=== PATIENT | female | born 1950 | race Caucasian/White ===

== ENCOUNTER 2016-09-15 19:52 | Emergency (ER) | payer OTHER, MEDICARE, MEDICAID ==
[~2016-09-15] VITALS: Ht 157.5 cm; Wt 105.5 kg
[2016-09-15] MEDS ORDERED: LEVOTHYROXIN50 MCG PO (21:55)
[2016-09-15] MEDS ORDERED: LASIX 20 MG TAB20 MG PO (21:56)
[2016-09-15] MEDS ORDERED: LISINOPRIL20 M1 PO (21:56)
[2016-09-15] MEDS ORDERED: LOPRESSOR50 M1 PO (21:58)
[2016-09-15] MEDS ORDERED: EFFEXOR XR150 MG PO (21:58)
[2016-09-15] MEDS ORDERED: TRAZODONE50 MG PO (21:59)
[2016-09-15] MEDS ORDERED: OMEPRAZOLE DR PO (22:01)
[2016-09-15] MEDS ORDERED: ATORVASTATIN CA20 MG PO (22:02)
[2016-09-15] MEDS ORDERED: TOUJEO SOL300 UNIT/M SC (22:03)
[2016-09-15] MEDS ORDERED: MELATONIN3 MG PO (22:03)
[2016-09-15 22:34] LABS: HEMATOCRIT 42.9 % (37.0-47.0); HEMOGLOBIN 13.8 g/dl (12.0-16.0); IMMATURE GRANULOCYTES 0.3 % (0.0-1.0); MEAN CORPUSCULAR HGB 27.3 pG CALC (26.0-32.0); MEAN CORPUSCULAR HGB CONC 32.2 g/L CALC (32.0-36.0); NEUT# 5.14 thou/uL (2.00-7.15); RED BLOOD COUNT 5.05 mill/uL (4.20-5.60); RED CELL DISTRI WIDTH 14.3 % (11.5-15.5)
[2016-09-15 22:35] LABS: URINE BILIRUBIN - DIPSTICK NEGATIVE (NEGATIVE); URINE BLOOD DIPSTICK NEGATIVE (NEGATIVE); URINE CLARITY CLEAR; URINE COLOR YELLOW; URINE GLUCOSE - DIPSTICK NEGATIVE (NEGATIVE); URINE KETONE NEGATIVE (NEGATIVE); URINE LEUK ESTERASE NEGATIVE (Negative); URINE NITRITE - DIPSTICK NEGATIVE (Negative); URINE PH 5.5 (4.5-8.0); URINE PROTEIN - DIPSTICK NEGATIVE (NEG-TRACE); URINE SPECIFIC GRAVITY <=1.005; URINE UROBILINOGEN - DIPSTICK 0.2 E.U./dL (0.2)
[2016-09-15 22:52] LABS: ALBUMIN 4.7 g/dL (3.2-5.0); BILIRUBIN, TOTAL 0.3 mg/dL (0.0-1.4); CALCIUM 9.7 mg/dL (8.4-10.2); CREATININE 1.3 mg/dL (0.5-1.0); POTASSIUM 3.7 mmol/l (3.5-5.1); TOTAL PROTEIN 8.3 g/dL (6.3-8.2)
[2016-09-16 00:01] VITALS: BP 162/80
== END 2016-09-16 00:01 | DRG 552 ==
LOC: ED 19:52
PROVIDERS: Emergency Medicine
DX: S16.1XXA Strain of muscle, fascia and tendon at neck level, initial encounter (principal); S06.300A Unspecified focal traumatic brain injury without loss of consciousness, initial encounter; V49.59XA Passenger injured in collision with other motor vehicles in traffic accident, initial encounter; Y92.414 Local residential or business street as the place of occurrence of the external cause

== ENCOUNTER 2019-07-21 | Emergency (ER) | payer MEDICARE ==
[~2019-07-21] MED LIST: AMLODIPINE5 MG PO; ASPIRIN 81 LOW81 MG PO; ATORVASTATIN CA20 MG PO; EFFEXOR XR150 MG PO; GNP MELATONIN MA5 MG PO; LASIX 20 MG TAB20 MG PO; LEVOTHYROXIN25 MC1 PO; LEVOTHYROXIN50 MCG PO; LIPITOR80 M1 PO; LISINOPRIL20 M1 PO; LOPRESSOR50 M1 PO; LOSARTAN POT100 MG PO; MELATONIN PO; MELATONIN3 M1 PO; MELATONIN3 MG PO; OMEPRAZOLE PO; TOUJEO SOL300 UNIT/M SC; TRAZODONE50 MG PO
[2019-07-21] MEDS ORDERED: PERCOCET 5/321 COMBO PO (05:38)
== END 2019-07-21 06:15 | disposition home or self-care (01) ==
DX: S42.302A Unspecified fracture of shaft of humerus, left arm, initial encounter for closed fracture (principal); I10 Essential (primary) hypertension; W18.39XA Other fall on same level, initial encounter; Y92.009 Unspecified place in unspecified non-institutional (private) residence as the place of occurrence of the external cause

== ENCOUNTER 2023-02-16 14:46 | Inpatient (IN) | payer OTHER ==
[2023-02-16] VITALS (12 sets, daily range): BP systolic 144–174; BP diastolic 86–130
[~2023-02-16] VITALS: Ht 157.5 cm; Wt 86.6 kg
[~2023-02-16 14:46] MED LIST changes: +PERCOCET 5/321 COMBO PO
[2023-02-16 15:29] LABS: BASO% 0.4 % (0-3); EOS% 0.1 % (0-8); HEMATOCRIT 35.2 % (37.0-47.0); HEMOGLOBIN 10.7 g/dl (12.0-16.0); IMMATURE GRANULOCYTES 0.3 % (0.0-5.0); LYMPH% 18.9 % (15-41); MEAN CELL VOLUME 87.1 fL CALC (80.0-100.0); MEAN CORPUSCULAR HGB 26.5 pG CALC (26.0-32.0); MEAN CORPUSCULAR HGB CONC 30.4 g/dL CAL (32.0-36.0); MONO% 9.5 % (2-13); NEUT# 6.49 thou/uL (2.00-7.15); NEUT% 70.8 % (42-76); RED BLOOD COUNT 4.04 mill/uL (4.20-5.60)
[2023-02-16 15:47] LABS: ALBUMIN 3.9 g/dL (3.2-5.0); ALKALINE PHOSPHATASE 137 u/l (38-126); ANION GAP 18 (6-22 (CALC)); BILIRUBIN, TOTAL 1.2 mg/dL (0.02-1.3); BUN 25 mg/dL (8-23); BUN/CREATININE RATIO 24 (12-20 (CALC)); CARBON DIOXIDE 19 mmol/l (22-30); CHLORIDE 103 mmol/l (95-108); GFR FOR AFR.AMER. > 60 ML/MIN (>=60 (CALC)); GFR OTHER RACES 54 ML/MIN (>=60 (CALC)); POTASSIUM 4.6 mmol/l (3.5-5.1); SODIUM 135 mmol/l (137-146); TOTAL PROTEIN 6.8 g/dL (6.3-8.2)
[2023-02-16 15:52] LABS: INTERNATIONAL NORMALIZED RATIO 1.9 RATIO (0.7-1.3); PROTHROMBIN TIME 17.5 SECONDS (9.0-12.5)
[2023-02-16 15:56] LABS: D-DIMER 7.2 mg/L (0.19-0.60)
[2023-02-16 15:58] LABS: SGOT/AST 1238 u/l (9-36)
[2023-02-16] MEDS ORDERED: OXYBUTYNIN CHLOR5 M2 (19:56)
[2023-02-16] MEDS ORDERED: LISINOPRIL10 MG PO (19:56)
[2023-02-16 19:57] LABS: URINE BILIRUBIN - DIPSTICK Negative (NEGATIVE); URINE BLOOD DIPSTICK Small (NEGATIVE); URINE GLUCOSE - DIPSTICK Negative (NEGATIVE); URINE KETONE Negative (NEGATIVE); URINE LEUK ESTERASE Negative (NEGATIVE); URINE NITRITE - DIPSTICK Negative (Negative); URINE PH 5.5 (4.5-8.0); URINE PROTEIN - DIPSTICK 100 mg/dL (NEG-TRACE); URINE SPECIFIC GRAVITY 1.025; URINE UROBILINOGEN - DIPSTICK 0.2 E.U./dL (0.2)
[2023-02-16] MEDS ORDERED: MOTRIN400 MG/TAB PO (19:57)
[2023-02-16] MEDS ORDERED: ALBUTERO2 XX (20:00)
[2023-02-16] MEDS ORDERED: MILK OF MAGNES7.75 % (20:00)
[2023-02-16 20:02] LABS: URINE COLOR Yellow
[2023-02-16 20:09] LABS: URINE SQUAMOUS EPITHELIAL CELL FEW EPI/hpf (0-FEW)
[2023-02-17 00:13] VITALS: BP 157/95
[2023-02-17 04:37] VITALS: BP 178/94
[2023-02-17 06:19] VITALS: BP 143/74
[2023-02-17 06:41] LABS: BASO% 0.6 % (0-3); EOS% 0.1 % (0-8); HEMATOCRIT 33.7 % (37.0-47.0); HEMOGLOBIN 10.5 g/dl (12.0-16.0); IMMATURE GRANULOCYTES 0.1 % (0.0-5.0); LYMPH% 21.3 % (15-41); MEAN CELL VOLUME 86.2 fL CALC (80.0-100.0); MEAN CORPUSCULAR HGB 26.9 pG CALC (26.0-32.0); MEAN CORPUSCULAR HGB CONC 31.2 g/dL CAL (32.0-36.0); MONO% 11.1 % (2-13); NEUT# 5.72 thou/uL (2.00-7.15); NEUT% 66.8 % (42-76); RED BLOOD COUNT 3.91 mill/uL (4.20-5.60); RED CELL DISTRI WIDTH 15.1 % (11.5-15.5)
[2023-02-17 06:59] LABS: ALBUMIN 3.6 g/dL (3.2-5.0); ALKALINE PHOSPHATASE 144 u/l (38-126); ANION GAP 16 (6-22 (CALC)); BILIRUBIN, TOTAL 1.7 mg/dL (0.02-1.3); BUN 24 mg/dL (8-23); BUN/CREATININE RATIO 24 (12-20 (CALC)); CALCULATED LDLCHOLESTEROL 46 mg/dL (62-129 (CALC)); CARBON DIOXIDE 20 mmol/l (22-30); CHLORIDE 104 mmol/l (95-108); CHOLESTEROL HDL RATIO 3.3 (<4.4 (CALC)); GFR FOR AFR.AMER. > 60 ML/MIN (>=60 (CALC)); GFR OTHER RACES 54 ML/MIN (>=60 (CALC)); HDL CHOLESTEROL 29 mg/dL (39.0-59.0); POTASSIUM 4.5 mmol/l (3.5-5.1); SODIUM 135 mmol/l (137-146); TOTAL PROTEIN 6.3 g/dL (6.3-8.2); TOTAL TRIGLYCERIDES 103 mg/dl (0-149); VLDL CHOLESTROL 21 mg/dl (0-48 (CALC))
[2023-02-17 07:01] LABS: TOTAL CHOLESTEROL 96 mg/dl (0-199)
[2023-02-17 07:06] LABS: SGOT/AST 1178 u/l (9-36)
[2023-02-17 12:46] VITALS: BP 142/78
[2023-02-17 14:12] VITALS: BP 156/103
[2023-02-17 20:42] VITALS: BP 150/77
[2023-02-18] VITALS (7 sets, daily range): BP systolic 143–164; BP diastolic 78–100
[2023-02-18 07:37] LABS: BASO% 0.6 % (0-3); EOS% 1.2 % (0-8); HEMATOCRIT 35.2 % (37.0-47.0); HEMOGLOBIN 11.1 g/dl (12.0-16.0); IMMATURE GRANULOCYTES 0.1 % (0.0-5.0); MEAN CELL VOLUME 84.8 fL CALC (80.0-100.0); MEAN CORPUSCULAR HGB 26.7 pG CALC (26.0-32.0); MEAN CORPUSCULAR HGB CONC 31.5 g/dL CAL (32.0-36.0); MONO% 6.8 % (2-13); NEUT# 6.21 thou/uL (2.00-7.15); NEUT% 64.3 % (42-76); RED BLOOD COUNT 4.15 mill/uL (4.20-5.60)
[2023-02-18 08:04] LABS: INTERNATIONAL NORMALIZED RATIO 1.9 RATIO (0.7-1.3); PROTHROMBIN TIME 17.4 SECONDS (9.0-12.5)
[2023-02-18 08:18] LABS: ALBUMIN 3.7 g/dL (3.2-5.0); ALKALINE PHOSPHATASE 141 u/l (38-126); ANION GAP 15 (6-22 (CALC)); BILIRUBIN, TOTAL 1.4 mg/dL (0.02-1.3); BUN 21 mg/dL (8-23); BUN/CREATININE RATIO 24 (12-20 (CALC)); CARBON DIOXIDE 24 mmol/l (22-30); CHLORIDE 99 mmol/l (95-108); CREATININE 0.9 mg/dL (0.5-1.0); GFR FOR AFR.AMER. > 60 ML/MIN (>=60 (CALC)); GFR OTHER RACES > 60 ML/MIN (>=60 (CALC)); MAGNESIUM 1.7 mg/dL (1.6-2.3); SGOT/AST 672 u/l (9-36); SODIUM 135 mmol/l (137-146); TOTAL PROTEIN 6.9 g/dL (6.3-8.2)
[2023-02-19 06:15] LABS: ALBUMIN 3.5 g/dL (3.2-5.0); ALKALINE PHOSPHATASE 142 u/l (38-126); ANION GAP 12 (6-22 (CALC)); BASO% 0.4 % (0-3); BILIRUBIN, TOTAL 1.4 mg/dL (0.02-1.3); BUN 17 mg/dL (8-23); BUN/CREATININE RATIO 19 (12-20 (CALC)); CARBON DIOXIDE 31 mmol/l (22-30); CHLORIDE 97 mmol/l (95-108); CREATININE 0.9 mg/dL (0.5-1.0); EOS% 1.9 % (0-8); GFR FOR AFR.AMER. > 60 ML/MIN (>=60 (CALC)); GFR OTHER RACES > 60 ML/MIN (>=60 (CALC)); HEMATOCRIT 35.6 % (37.0-47.0); HEMOGLOBIN 11.4 g/dl (12.0-16.0); IMMATURE GRANULOCYTES 0.2 % (0.0-5.0); LYMPH% 25.4 % (15-41); MAGNESIUM 1.5 mg/dL (1.6-2.3); MEAN CELL VOLUME 84.6 fL CALC (80.0-100.0); MEAN CORPUSCULAR HGB 27.1 pG CALC (26.0-32.0); MONO% 8.9 % (2-13); NEUT# 5.31 thou/uL (2.00-7.15); NEUT% 63.2 % (42-76); POTASSIUM 3.3 mmol/l (3.5-5.1); RED BLOOD COUNT 4.21 mill/uL (4.20-5.60); RED CELL DISTRI WIDTH 14.9 % (11.5-15.5); SGOT/AST 332 u/l (9-36); SODIUM 137 mmol/l (137-146); TOTAL PROTEIN 6.4 g/dL (6.3-8.2)
[2023-02-19 07:24] VITALS: BP 156/94
[2023-02-19 11:30] VITALS: BP 172/96
[2023-02-19] MEDS ORDERED: ALDACTONE25 MG PO (14:17)
[2023-02-19] MEDS ORDERED: TOPROL XL25 M1 PO (14:17)
[2023-02-19] MEDS ORDERED: FARXIGA10 MG PO (14:17)
== END 2023-02-19 15:25 | DRG 291 ==
LOC: ED 14:46 → ED-I 15:09 → ED 15:09 → ED-I 17:30 → ED 18:05 → MS2 18:06
PROVIDERS: Family Medicine; Nurse Practitioner Family; ADMIT Student in an Organized Health Care Education/Training Program; ATTEND Student in an Organized Health Care Education/Training Program
DX: I11.0 Hypertensive heart disease with heart failure (principal); I50.21 Acute systolic (congestive) heart failure; D68.9 Coagulation defect, unspecified; E11.9 Type 2 diabetes mellitus without complications; F32.A Depression, unspecified; E03.9 Hypothyroidism, unspecified; I49.1 Atrial premature depolarization; I34.0 Nonrheumatic mitral (valve) insufficiency; K76.1 Chronic passive congestion of liver; R06.02 Shortness of breath; I10 Essential (primary) hypertension
CPT/HCPCS: J3475; Q9967

== ENCOUNTER 2023-03-22 10:10 | Inpatient (IN) | payer OTHER ==
[2023-03-22] VITALS (10 sets, daily range): BP systolic 133–174; BP diastolic 65–112
[~2023-03-22] VITALS: Ht 157.5 cm; Wt 87.0 kg
[~2023-03-22 10:10] MED LIST changes: +ALBUTERO2 XX; +ALDACTONE25 MG PO; +AZITHROMYCIN500 MG PO; +FARXIGA10 MG PO; +LISINOPRIL10 MG PO; +MILK OF MAGNES7.75 %; +MOTRIN400 MG/TAB PO; +OMNICEF300 M1 PO; +OXYBUTYNIN CHLOR5 M2; +TOPROL XL25 M1 PO
--- NOTE | 2023-03-22 10:10 | NUR ---
PT TO ROOM VIA MANISHA DEGROOT AT BEDSIDE, PT COMING FROM [facility]. HERE FOR WOUNDS OF LEFT FOOT, SENT BY NURSE FROM THE [facility]. PT IS A POOR HISTORIAN.
--- NOTE | 2023-03-22 10:30 | NUR ---
PT UP TO BEDSIDE COMODE FOR URINE COLLECTION. ABLE TO AMBULATE WITH ASSIST X 1. PT CHANGED TO GOWN. SHE IS IN CUSTODY, OFFICER AT BEDSIDE.
--- NOTE | 2023-03-22 11:18 | NUR ---
PT TO US WITH US TECH, MANISHA WITH PT IN TRANSPORT TO US
--- NOTE | 2023-03-22 11:22 | NUR ---
2 SETS OF BLOOD CULTURES AND CULTURE OF WOUND COLLECTED, SENT TO LAB.
[2023-03-22 11:43] LABS: BASO% 0.6 % (0-3); EOS% 3.6 % (0-8); HEMATOCRIT 31.5 % (37.0-47.0); HEMOGLOBIN 9.5 g/dl (12.0-16.0); IMMATURE GRANULOCYTES 0.3 % (0.0-5.0); LYMPH% 27.4 % (15-41); MEAN CELL VOLUME 87.5 fL CALC (80.0-100.0); MEAN CORPUSCULAR HGB 26.4 pG CALC (26.0-32.0); MEAN CORPUSCULAR HGB CONC 30.2 g/dL CAL (32.0-36.0); MONO% 7.4 % (2-13); NEUT# 4.74 thou/uL (2.00-7.15); NEUT% 60.7 % (42-76); RED BLOOD COUNT 3.6 mill/uL (4.20-5.60); RED CELL DISTRI WIDTH 18.6 % (11.5-15.5)
[2023-03-22 11:45] LABS: URINE BILIRUBIN - DIPSTICK Negative (NEGATIVE); URINE BLOOD DIPSTICK Large (NEGATIVE); URINE GLUCOSE - DIPSTICK 500 mg/dL (NEGATIVE); URINE KETONE Negative (NEGATIVE); URINE NITRITE - DIPSTICK Negative (Negative); URINE PH 5.5 (4.5-8.0); URINE PROTEIN - DIPSTICK 100 mg/dL (NEG-TRACE)
[2023-03-22] MEDS ORDERED: CARVEDILOL6.25 MG PO (11:57)
[2023-03-22] MEDS ORDERED: ELIQUIS5 MG PO (11:58)
[2023-03-22] MEDS ORDERED: ENTRESTO 49-511 TAB (11:58)
[2023-03-22] MEDS ORDERED: DOXYCYCL HYC100 M2 IV (11:58)
[2023-03-22] MEDS ORDERED: ALDACTONE25 MG PO (12:02)
[2023-03-22] MEDS ORDERED: VENLAFAXINE HC150 M1 PO (12:03)
[2023-03-22] MEDS ORDERED: ACETAMINOPHEN325 MG PO (12:05)
[2023-03-22 12:07] LABS: ALKALINE PHOSPHATASE 72 u/l (38-126); BILIRUBIN, TOTAL 0.8 mg/dL (0.02-1.3); BUN 13 mg/dL (8-23); BUN/CREATININE RATIO 15 (12-20 (CALC)); CHLORIDE 110 mmol/l (95-108); CREATININE 0.9 mg/dL (0.5-1.0); GFR FOR AFR.AMER. > 60 ML/MIN (>=60 (CALC)); GFR OTHER RACES > 60 ML/MIN (>=60 (CALC)); POTASSIUM 4.1 mmol/l (3.5-5.1); SGOT/AST 32 u/l (9-36); SODIUM 141 mmol/l (137-146); TOTAL PROTEIN 7.4 g/dL (6.3-8.2)
--- NOTE | 2023-03-22 12:09 | NUR ---
RECORDS RECIEVED FROM FACILITY AND REVIEWED THEM FOR MED REC, PT UNABLE TO ASSIST IN VERIFICATION OF MEDS, UTILIZED NURSING DOCUMENTATION FROM RECORDS RECIEVED TO FILE
[2023-03-22 12:13] LABS: URINE COLOR Yellow; URINE LEUK ESTERASE Small (NEGATIVE)
[2023-03-22 12:28] LABS: URINE BACTERIA FEW hpf; URINE EPITHELIAL CELLS MODERATE EPI/hpf (0-FEW)
[2023-03-22 12:36] LABS: ANION GAP 16 (6-22 (CALC)); CARBON DIOXIDE 19 mmol/l (22-30)
--- NOTE | 2023-03-22 13:22 | NUR ---
PATIENT RESTING IN BED, OFFICER AT BEDSIDE, IV ABX INFUSING
--- NOTE | 2023-03-22 13:57 | NUR ---
REPORT RECIEVED BY KEITH LORENZO
--- NOTE | 2023-03-22 14:00 | NUR ---
report called to med surg, spoke with dayday, pt tranferred via wc on tele [phone], officer at bedside. vancomycin sent with patient and handed to dayday
--- NOTE | 2023-03-22 14:20 | NUR ---
PT ARRIVED VIA WITH CLAIMS CLERK MAURA. PT ABLE TO AMBULATE TO TO BED VIA STAND BY ASSIST. PT ABLE TO OBEY COMMANDS, PT ALERT TO PERSON. PHOTO OBTAINED FOR LOWER LEGS RIGHT ANF LEFT LEG. SEE CHART. RIGHT LEG +2-3 LEFT LEG +4 CHECK WOUND ASSESSMENT. IV INTACT. ADMISSION ASSESSMENT ALLOWED. ORIENTATED PT TO ROOM AND CALL MEANS SYSTEM. DRINK/SNACK PROVIDED. PT ALSO DIABETIC ON SLIDING SCALE. TELE MONITOR IN PLACE. CONITNOUS MONITORING PER ED. DAVID AT BEDSIDE. SHACKLES IN PLACE, SKIN INTACT. FALL/SAFTEY PRECAUTION IN PLACE. CALL LIGHT WITHIN REACH
--- NOTE | 2023-03-22 15:39 | NUR ---
S: GREGORY DEVLIN is a 72 F who presents with left leg cellulitis. She has a history of diabetes, hypertension, heart disease, CHF, and hepatitis. All medications in patient's chart were reviewed. O: VS: TD=753/83mmHg, P=75bpm, RR= 13beats/min, T= 97.1 F W=85.4kg, HT=62in, SCr=0.9mg/dL, CrCl=50 ml/min A: Blood culture is pending. Urine culture is pending. P: Patient is on cefepime 2 g IV Q8H and vancomycin 1 g IV Q12H. Vancomycin ordered for pharmacy to dose. Continue vancomycin 1 gm IV Q12H. Vancomycin trough is drawn before the 4th dose on 03/24/2023 at 0030. Vancomycin goal trough is between 10-15 mcg/ml. Pharmacy will follow and or advise on antibiotics use as needed.
[2023-03-22] MEDS ORDERED: BUMETANIDE1 MG PO (16:12)
--- NOTE | 2023-03-22 17:18 | NUR ---
PT RESTING IN BED WACTHING TV WITH GAURD AT BEDSIDE. PT ALERT TO PERSON. NO DISTRESS NOTED. BREATHING EVEN AND UNLABORED. FALL/SAFTEY PRECAUTION IN PLACE. CALL LIGHT WITHIN REACH
--- NOTE | 2023-03-22 20:00 | NUR ---
RECEIVED REPORT FROM NURSE ANSELMO, PATIENT ALERT ORINTED TO SELF ONLY, PATIENT CONFUSED, PATIENT WITH ONE GUARD IN ROOM RT HAND SHACKED TO BED, PATIENT IV ON RAC G 20 RAC PATENT FLUSHES WELL, HOOKED ON TELEMETRY, DENIES PAIN AT THIS TIME, NOTED EDEMA ON BLE AND WOUND ON LEFT TOE 2ND 3RD TOE, DRESSING N PLACE, CALL LIGHT IN REACH.
[2023-03-23] VITALS (9 sets, daily range): BP systolic 132–151; BP diastolic 79–90
--- NOTE | 2023-03-23 | NUR ---
PATINET RESTING IN BED, DENIES PAIN OR DISCOMFORTS AT THIS TIME, CALL LIGHT IN REACH.
--- NOTE | 2023-03-23 04:00 | NUR ---
CHANTELLE PULLED IV CATHETER INTACT, INSERTED NEW IN ON RFA G 22 PATENT FLUSHES WELL.
[2023-03-23 05:49] LABS: BASO% 0.9 % (0-3); EOS% 2.8 % (0-8); HEMATOCRIT 29.7 % (37.0-47.0); HEMOGLOBIN 9.1 g/dl (12.0-16.0); IMMATURE GRANULOCYTES 0.1 % (0.0-5.0); LYMPH% 28.1 % (15-41); MEAN CELL VOLUME 87.6 fL CALC (80.0-100.0); MEAN CORPUSCULAR HGB 26.8 pG CALC (26.0-32.0); MEAN CORPUSCULAR HGB CONC 30.6 g/dL CAL (32.0-36.0); NEUT# 4.29 thou/uL (2.00-7.15); NEUT% 61.1 % (42-76); RED BLOOD COUNT 3.39 mill/uL (4.20-5.60); RED CELL DISTRI WIDTH 18.4 % (11.5-15.5)
[2023-03-23 06:07] LABS: ALBUMIN 3.2 g/dL (3.2-5.0); ALKALINE PHOSPHATASE 72 u/l (38-126); ANION GAP 17 (6-22 (CALC)); BILIRUBIN, TOTAL 0.7 mg/dL (0.02-1.3); BUN 15 mg/dL (8-23); BUN/CREATININE RATIO 15 (12-20 (CALC)); CARBON DIOXIDE 19 mmol/l (22-30); CHLORIDE 108 mmol/l (95-108); GFR FOR AFR.AMER. > 60 ML/MIN (>=60 (CALC)); GFR OTHER RACES 54 ML/MIN (>=60 (CALC)); MAGNESIUM 1.6 mg/dL (1.6-2.3); POTASSIUM 4.2 mmol/l (3.5-5.1); SGOT/AST 25 u/l (9-36); SODIUM 139 mmol/l (137-146); TOTAL PROTEIN 6.3 g/dL (6.3-8.2)
--- NOTE | 2023-03-23 07:00 | NUR ---
RECEIVE REPORT FROM MOORE RN. PATIENT STABLE AT THIS TIME. RESTING PLEASANT IN BEB. TELE MONITOR ON. SAFETY AND FALL PRECAUTIONS IN PLACE. CALL LIGHT WITHIN IN REACH.
--- NOTE | 2023-03-23 07:49 | NUR ---
I SPOKE WITH DR EM AT 0749 HRS IN REFERENCE TO A PHYSICIAN CONSULT FOR THIS PATIENT.
--- NOTE | 2023-03-23 12:00 | NUR ---
PATIENT RESTING IN BED STABLE AT THIS TIME. TELE MONITOR ON. WOUND CARE DOCTOR GIVES ORDER FOR WOUND CARE. IS DONE. SAFETY AND FALL PRECAUTIONS IN PLACE. CALL LIGHT WITHIN IN REACH. GABBY HAWTHORNE.
--- NOTE | 2023-03-23 19:00 | NUR ---
NURSE TO NURSE REPORT RECEIVED. NO DISTRESS NOTED ON EXAM. PATIENT REPORTS NO PAIN AT THIS TIME. GLOBAL POSITION SYSTEM TECHNICIAN AT BEDSIDE. SKIN ASSESSMENT DONE DUE TO BEING RESTRAIN AND WOUNDS ON FEET WITH CLEAN AND INTACT DRESSING IN PLACE. CALL LIGHT WITHIN REACH. PLAN OF CARE ONGOING.
--- NOTE | 2023-03-24 00:45 | NUR ---
DRESSING CHANGED ON LEFT FOOT. NO DISTRESS NOTED ON EXAM. CALL LIGHT WITHIN REACH. PLAN OF CARE ONGOING.
[2023-03-24 04:04] VITALS: BP 140/74
[2023-03-24 05:05] VITALS: BP 140/74
--- NOTE | 2023-03-24 05:10 | NUR ---
PATIENT HELPED TO THE BSC AND BACK TO BED. KIER DRIER IN ROOM. NO CHANGES. CALL LIGHT WITHIN REACH. PLAN OF CARE ONGOING.
[2023-03-24 06:19] LABS: BASO% 0.9 % (0-3); EOS% 4.7 % (0-8); HEMATOCRIT 30.3 % (37.0-47.0); HEMOGLOBIN 9.3 g/dl (12.0-16.0); IMMATURE GRANULOCYTES 0.9 % (0.0-5.0); LYMPH% 27.6 % (15-41); MEAN CELL VOLUME 85.8 fL CALC (80.0-100.0); MEAN CORPUSCULAR HGB 26.3 pG CALC (26.0-32.0); MEAN CORPUSCULAR HGB CONC 30.7 g/dL CAL (32.0-36.0); MONO% 8.6 % (2-13); NEUT# 3.88 thou/uL (2.00-7.15); NEUT% 57.3 % (42-76); RED BLOOD COUNT 3.53 mill/uL (4.20-5.60); RED CELL DISTRI WIDTH 18.4 % (11.5-15.5)
[2023-03-24 06:39] LABS: ALBUMIN 3.2 g/dL (3.2-5.0); ALKALINE PHOSPHATASE 75 u/l (38-126); ANION GAP 18 (6-22 (CALC)); BILIRUBIN, TOTAL 0.9 mg/dL (0.02-1.3); BUN 16 mg/dL (8-23); BUN/CREATININE RATIO 16 (12-20 (CALC)); CARBON DIOXIDE 18 mmol/l (22-30); CHLORIDE 107 mmol/l (95-108); GFR FOR AFR.AMER. > 60 ML/MIN (>=60 (CALC)); GFR OTHER RACES 54 ML/MIN (>=60 (CALC)); MAGNESIUM 1.5 mg/dL (1.6-2.3); POTASSIUM 4.2 mmol/l (3.5-5.1); SGOT/AST 24 u/l (9-36); SODIUM 139 mmol/l (137-146); TOTAL PROTEIN 6.4 g/dL (6.3-8.2)
[2023-03-24 07:04] VITALS: BP 141/82
--- NOTE | 2023-03-24 08:00 | NUR ---
PT RESTING IN BED WITH GAURD AT BEDSIDE. ASSESSMENT COMPLETED. TELE MONITOR I PLACE, CONTINOUS MONITORING PER ED. PT STATES NO PAIN. FALL/SAFTEY PRECaution in PLACE, CALL LIGHT WITHIN REACH
--- NOTE | 2023-03-24 09:59 | NUR ---
S: GREGORY DEVLIN is a 72 F who presents with left leg cellulitis. She has a history of diabetes, hypertension, CHF, and hepatitis. All medications in patient's chart were reviewed. O: Vancomycin Trough= 17 mcg/ml VS: BP= 142/82mmHg, P= 87bpm, RR= 17bpm, T= 97F W= 82.81kg, HT= 62in, Scr= 1.0mg/dl, CrCl= 49.2ml/min A: Blood culture preliminary results show no growth after 24hrs. Urine culture show 50,000 cfu/ml mixed gram positive nelson, probable skin contaminates. Wound culture preliminary results show gram positive cocci. Vancomycin trough supratherapeutic for goal range of 10-15. Decrease in dose warranted. P: Patient is on cefepime 2g IV Q8H. Vancomycin ordered for pharmacy to dose. Decrease vancomycin to 750mg IV Q12H. Vancomycin trough is drawn before the 4th dose on 03/26/23 at 0030. Vancomycin goal trough is between 10-15 mcg/ml. Pharmacy will follow and or advise on antibiotics use as needed.
[2023-03-24 10:32] VITALS: BP 148/84
--- NOTE | 2023-03-24 12:30 | NUR ---
PT EATING LUNCH. NO DISTRESS NOTED. BREATHING EVEN AND UNLABORED. GAURD AT BEDSIDE. FALL/SAFTEY PRECAUTION IN PLACE. CALL LIGHT WITHIN REACH
[2023-03-24 14:50] VITALS: BP 133/85
--- NOTE | 2023-03-24 16:00 | NUR ---
DRESSING PERFORMED. PT TOLERATED WELL REORIENTATED PT TO ROOM AND CALL MEANS SYSTEM. NO DISTRESS NOTED. BREATHING IS EVEN AND UNLABORED. FALL/SAFTEY PRECAUTION IN PLACE. CALL LIGHT WITHIN REACH.
[2023-03-24 19:34] VITALS: BP 138/69
--- NOTE | 2023-03-24 21:36 | NUR ---
ASSESSMENT COMPLETE. PATIENT IN BED WATCHING TV. LEFT UPPER EXTREMITY AND RIGHT LOWER EXTREMITY SHACKELED TO BED; OFFICER AT BEDSIDE. PATIENT ORIENTED TO PERSON, PLACE; HOWEVER FURTHER CONVERSATION REVEALS CONFUSION. PATIENT DENIES PAIN AND BEHAVIOR DOES NOT EXPRESS PAIN. CALL LIGHT WITHIN REACH, INSTRUCTED TO CALL FOR ASSISTANCE.
[2023-03-25 00:18] VITALS: BP 105/59
[2023-03-25 03:48] VITALS: BP 117/72
[2023-03-25 05:57] LABS: BASO% 0.9 % (0-3); EOS% 5.6 % (0-8); HEMATOCRIT 31.5 % (37.0-47.0); HEMOGLOBIN 9.7 g/dl (12.0-16.0); IMMATURE GRANULOCYTES 0.1 % (0.0-5.0); LYMPH% 20.4 % (15-41); MEAN CELL VOLUME 86.1 fL CALC (80.0-100.0); MEAN CORPUSCULAR HGB 26.5 pG CALC (26.0-32.0); MEAN CORPUSCULAR HGB CONC 30.8 g/dL CAL (32.0-36.0); MONO% 7.8 % (2-13); NEUT# 4.58 thou/uL (2.00-7.15); NEUT% 65.2 % (42-76); RED BLOOD COUNT 3.66 mill/uL (4.20-5.60); RED CELL DISTRI WIDTH 18.5 % (11.5-15.5)
[2023-03-25 06:35] VITALS: BP 135/65
[2023-03-25 06:53] LABS: ALBUMIN 3.1 g/dL (3.2-5.0); ALKALINE PHOSPHATASE 74 u/l (38-126); ANION GAP 17 (6-22 (CALC)); BILIRUBIN, TOTAL 0.9 mg/dL (0.02-1.3); BUN 17 mg/dL (8-23); BUN/CREATININE RATIO 16 (12-20 (CALC)); CARBON DIOXIDE 19 mmol/l (22-30); CHLORIDE 106 mmol/l (95-108); GFR FOR AFR.AMER. > 60 ML/MIN (>=60 (CALC)); GFR OTHER RACES 54 ML/MIN (>=60 (CALC)); POTASSIUM 4.1 mmol/l (3.5-5.1); SGOT/AST 24 u/l (9-36); SODIUM 139 mmol/l (137-146); TOTAL PROTEIN 6.2 g/dL (6.3-8.2)
--- NOTE | 2023-03-25 07:00 | NUR ---
RECEIVE REPORT FROM KATIE. PT RESTING IN BED STABLE AT THIS TIME. SAFETY AND FALL PRECAUTIONS IN PLACE. CALL LIGHT WITHIN IN REACH. GABBY ALVAREZ FOR PT SATISFACTIONS AND FALL PRECAUTIONS.
[2023-03-25 07:32] LABS: MAGNESIUM 1.9 mg/dL (1.6-2.3)
[2023-03-25 08:00] VITALS: BP 135/65
[2023-03-25] MEDS ORDERED: LEVOFLOXACIN500MG PO (11:32)
[2023-03-25 12:11] VITALS: BP 135/65
--- NOTE | 2023-03-25 12:38 | NUR ---
PATIENT RESTING IN BED STABLE AT THIS TIME. TELE MONITOR ON. SAFETY AND FALL PRECAUTIONS IN PLACE. CALL LIGHT WITHIN IN REACH. GABBY HAWTHORNE.
--- NOTE | 2023-03-25 12:55 | NUR ---
DISCHARGE PATIENT. TODAY HE IS DONE WOUND CARE. PT REMOVES HIS DRESSING.
--- NOTE | 2023-03-25 12:57 | NUR ---
Discharge instructions given. Patient verbalizes understanding of same. Dis[facility] in stable condition [facility]. All belongings sent with pt.
== END 2023-03-25 12:57 | DRG 603 ==
LOC: ED 10:10 → ED-I 12:30 → ED 12:54 → MS2 12:55
PROVIDERS: Family Medicine; Nurse Practitioner Family; ADMIT Student in an Organized Health Care Education/Training Program; ATTEND Student in an Organized Health Care Education/Training Program
DX: L03.116 Cellulitis of left lower limb (principal); I50.22 Chronic systolic (congestive) heart failure; L97.528 Non-pressure chronic ulcer of other part of left foot with other specified severity; B95.7 Other staphylococcus as the cause of diseases classified elsewhere; E11.621 Type 2 diabetes mellitus with foot ulcer; E11.51 Type 2 diabetes mellitus with diabetic peripheral angiopathy without gangrene; I11.0 Hypertensive heart disease with heart failure; I25.10 Atherosclerotic heart disease of native coronary artery without angina pectoris; E03.9 Hypothyroidism, unspecified; M19.072 Primary osteoarthritis, left ankle and foot; S91.301A Unspecified open wound, right foot, initial encounter; X58.XXXA Exposure to other specified factors, initial encounter
CPT/HCPCS: J0692; J1650; J3370; J3475

== ENCOUNTER 2023-06-19 13:10 | Observation (INO) | payer OTHER ==
[~2023-06-19] VITALS: Ht 157.5 cm; Wt 55.3 kg
[2023-06-19] VITALS (12 sets, daily range): BP systolic 85–123; BP diastolic 33–76
[~2023-06-19 13:10] MED LIST changes: +ACETAMINOPHEN325 MG PO; +BUMETANIDE1 MG PO; +CARVEDILOL6.25 MG PO; +DOXYCYCL HYC100 M2 IV; +ELIQUIS5 MG PO; +ENTRESTO 49-511 TAB; +LEVOFLOXACIN500MG PO; +VENLAFAXINE HC150 M1 PO
[2023-06-19] MEDS ORDERED: SODIUM CHLORIDE 0.9% 1,000 ML IV ONE ×2 (13:40→17:05)
[2023-06-19 13:51] LABS: BASO% 0.6 % (0-3); EOS% 1.9 % (0-8); IMMATURE GRANULOCYTES 0.1 % (0.0-5.0); LYMPH% 30.9 % (15-41); MEAN CORPUSCULAR HGB 25.1 pG CALC (26.0-32.0); MONO% 7.6 % (2-13); NEUT# 4.05 thou/uL (2.00-7.15); NEUT% 58.9 % (42-76); RED BLOOD COUNT 4.82 mill/uL (4.20-5.60); RED CELL DISTRI WIDTH 18.4 % (11.5-15.5)
[2023-06-19 13:54] LABS: HEMOGLOBIN 12.1 g/dl (12.0-16.0); MEAN CELL VOLUME 80.9 fL CALC (80.0-100.0)
[2023-06-19 14:03] LABS: BILIRUBIN, TOTAL 0.5 mg/dL (0.02-1.3)
[2023-06-19 14:44] LABS: ALBUMIN 4.4 g/dL (3.2-5.0); CREATININE 1.7 mg/dL (0.5-1.0); TOTAL PROTEIN 7.8 g/dL (6.3-8.2)
[2023-06-19 14:54] LABS: POTASSIUM 6.5 mmol/l (3.5-5.1)
[2023-06-19] MEDS ORDERED: DEXTROSE 10% 500 ML BAG IV ONE ×2 (15:35→19:30)
[2023-06-19] MEDS ORDERED: CALCIUM GLUCONATE 2 GM in SODIUM CHLORIDE 0.9% 100 ML IV ONE (15:35)
[2023-06-19] MEDS ORDERED: INSULIN REGULAR (HUMAN) 100 UNIT/ML INJ IV ONE (15:35)
[2023-06-19] MEDS ORDERED: SODIUM POLYSTYRENE SULFONATE 15 G/BTL POWDER PO ONE (15:35)
[2023-06-19 17:23] LABS: URINE BILIRUBIN - DIPSTICK Negative (NEGATIVE); URINE BLOOD DIPSTICK Trace-lysed (NEGATIVE); URINE COLOR Yellow; URINE GLUCOSE - DIPSTICK 500 mg/dL (NEGATIVE); URINE KETONE Negative (NEGATIVE); URINE LEUK ESTERASE Moderate (NEGATIVE); URINE NITRITE - DIPSTICK Negative (Negative); URINE PH 5.5 (4.5-8.0); URINE PROTEIN - DIPSTICK Negative (NEG-TRACE); URINE SPECIFIC GRAVITY <=1.005; URINE UROBILINOGEN - DIPSTICK 0.2 E.U./dL (0.2)
[2023-06-19 17:29] LABS: URINE BACTERIA FEW hpf; URINE WBC 50-100 WBC/hpf (0-5); URINE YEAST MODERATE hpf
[2023-06-19 17:37] LABS: CREATININE 1.6 mg/dL (0.5-1.0)
[2023-06-19 17:38] LABS: POTASSIUM 5.5 mmol/l (3.5-5.1)
[2023-06-19] MEDS ORDERED: MAGNESIUM HYDROXIDE 30 ML UDC PO PRN (18:15)
[2023-06-19] MEDS ORDERED: SODIUM CHLORIDE 0.9% 1,000 ML IV PRN (18:15)
[2023-06-19] MEDS ORDERED: ACETAMINOPHEN 325 MG/TAB PO PRN (18:15)
[2023-06-19] MEDS ORDERED: IPRATROPIUM-Albuterol 0.5MG-2.5MG/3 ML NEB PRN (18:20)
[2023-06-19] MEDS ORDERED: SODIUM CHLORIDE 0.9% 500 ML IV SCH (19:20)
[2023-06-19] MEDS ORDERED: HYDROCORTISONE SODIUM SUCCINAT 100 MG VIAL IV SCH (19:30)
[2023-06-19] MEDS ORDERED: GLUCAGON HCL (Rdna) 1 MG VIAL IV SCH (19:35)
[2023-06-19] MEDS ORDERED: SODIUM BICARBONATE 150 ML in DEXTROSE 5% 850 ML IV PRN (20:00)
[2023-06-19] MEDS ORDERED: ONDANSETRON HCl 4 MG/2 ML SDV IV PRN (21:00)
[2023-06-19] MEDS ORDERED: SODIUM ZIRCONIUM CYCLOSILICATE 10 GM PAK PO SCH (21:00)
[2023-06-19] MEDS ORDERED: APIXABAN BASE 2.5 MG/TAB TAB PO SCH (21:00)
[2023-06-19] MEDS ORDERED: DEXTROSE 250 ML IV PRN (21:35)
[2023-06-19] MEDS ORDERED: Heparin SODIUM (Porcine) 5,000 UNITS/ML SDV SC SCH (22:00)
[2023-06-19] MEDS ORDERED: CLARIFY DOSE PO PRN (22:00)
[2023-06-20 00:29] VITALS: BP 137/58
[2023-06-20 04:27] VITALS: BP 112/49
[2023-06-20] MEDS ORDERED: LEVOTHYROXINE SODIUM 50 MCG/TAB PO SCH (06:00)
[2023-06-20 06:52] LABS: BASO% 0.3 % (0-3); EOS% 0.1 % (0-8); HEMATOCRIT 38.3 % (37.0-47.0); HEMOGLOBIN 11.6 g/dl (12.0-16.0); IMMATURE GRANULOCYTES 0.3 % (0.0-5.0); LYMPH% 8.3 % (15-41); MEAN CELL VOLUME 82.4 fL CALC (80.0-100.0); MEAN CORPUSCULAR HGB 24.9 pG CALC (26.0-32.0); MEAN CORPUSCULAR HGB CONC 30.3 g/dL CAL (32.0-36.0); MONO% 1.2 % (2-13); NEUT# 6.78 thou/uL (2.00-7.15); NEUT% 89.8 % (42-76); RED BLOOD COUNT 4.65 mill/uL (4.20-5.60); RED CELL DISTRI WIDTH 18.3 % (11.5-15.5)
[2023-06-20] MEDS ORDERED: INSULIN LISPRO 100 UNITS/ML ML SC SCH (07:00)
[2023-06-20 07:13] LABS: ALBUMIN 4.1 g/dL (3.2-5.0); BILIRUBIN, TOTAL 0.4 mg/dL (0.02-1.3); CHOLESTEROL HDL RATIO 2.9 (<4.4 (CALC)); CREATININE 1.3 mg/dL (0.5-1.0); MAGNESIUM 2.1 mg/dL (1.6-2.3); TOTAL PROTEIN 7.2 g/dL (6.3-8.2)
[2023-06-20 07:15] LABS: POTASSIUM 5.5 mmol/l (3.5-5.1)
[2023-06-20 07:28] VITALS: BP 107/43
[2023-06-20] MEDS ORDERED: SODIUM ZIRCONIUM CYCLOSILICATE 10 GM PAK PO SCH (09:00)
[2023-06-20] MEDS ORDERED: FUROSEMIDE 40 MG/4 ML SDV IV SCH (11:30)
[2023-06-20] MEDS ORDERED: SODIUM BICARBONATE 150 ML in DEXTROSE 5% 850 ML IV PRN (15:10)
[2023-06-20] MEDS ORDERED: CLARIFY DOSE PO PRN (15:20)
[2023-06-20 16:10] VITALS: BP 138/59
[2023-06-20 19:11] VITALS: BP 113/42
[2023-06-21 00:25] VITALS: BP 125/49
[2023-06-21 05:11] VITALS: BP 145/67
[2023-06-21 06:53] LABS: BASO% 0.1 % (0-3); HEMATOCRIT 34.9 % (37.0-47.0); IMMATURE GRANULOCYTES 0.1 % (0.0-5.0); LYMPH% 13.8 % (15-41); MEAN CORPUSCULAR HGB 25.5 pG CALC (26.0-32.0); MEAN CORPUSCULAR HGB CONC 31.5 g/dL CAL (32.0-36.0); NEUT# 6.14 thou/uL (2.00-7.15); RED BLOOD COUNT 4.31 mill/uL (4.20-5.60); RED CELL DISTRI WIDTH 18.5 % (11.5-15.5)
[2023-06-21 06:59] VITALS: BP 98/53
[2023-06-21 07:16] LABS: CREATININE 1.2 mg/dL (0.5-1.0)
== END 2023-06-21 11:50 | DRG 641 ==
LOC: ED 13:10 → ED-I 17:40 → ED 18:05 → ED-I 18:06 → MS2 20:07
PROVIDERS: Family Medicine; Internal Medicine Nephrology; ADMIT Student in an Organized Health Care Education/Training Program; ATTEND Student in an Organized Health Care Education/Training Program
DX: E87.5 Hyperkalemia (principal); N17.9 Acute kidney failure, unspecified; I13.0 Hypertensive heart and chronic kidney disease with heart failure and stage 1 through stage 4 chronic kidney disease, or unspecified chronic kidney disease; I50.22 Chronic systolic (congestive) heart failure; E87.1 Hypo-osmolality and hyponatremia; E87.20 Acidosis, unspecified; E11.22 Type 2 diabetes mellitus with diabetic chronic kidney disease; N18.31 Chronic kidney disease, stage 3a; I95.9 Hypotension, unspecified; G30.9 Alzheimer's disease, unspecified; F02.80 Dementia in other diseases classified elsewhere, unspecified severity, without behavioral disturbance, psychotic disturbance, mood disturbance, and anxiety; E11.649 Type 2 diabetes mellitus with hypoglycemia without coma; I44.0 Atrioventricular block, first degree; E86.9 Volume depletion, unspecified; E11.51 Type 2 diabetes mellitus with diabetic peripheral angiopathy without gangrene; S00.93XA Contusion of unspecified part of head, initial encounter; K21.9 Gastro-esophageal reflux disease without esophagitis; E03.9 Hypothyroidism, unspecified; X58.XXXA Exposure to other specified factors, initial encounter; Z79.01 Long term (current) use of anticoagulants; Y92.149 Unspecified place in prison as the place of occurrence of the external cause; Z20.822 Contact with and (suspected) exposure to COVID-19
CPT/HCPCS: G0378